=== PATIENT | female | born 1970 | race Caucasian/White ===

== ENCOUNTER → 2020-11-04 11:08 | Outpatient (CLI) | payer OTHER, SELFPAY ==
--- NOTE | ~2020-11-04 | US_ITS ---
EXAMINATION: US pelvic complete w TV DATE: 11/04/2020 11:41 INDICATION: Postmenopausal bleeding TECHNIQUE: Multiple transabdominal and endovaginal sonographic images of the pelvis were obtained. COMPARISON: CT dated 12/15/2013r FINDINGS: The uterus measures 7.2 x 3.4 x 4.7 cm. The endometrial complex measures 2 mm in thickness. The righ t ovary measures 4.5 x 2.8 x 4.5 cm. 3.5 cm anechoic right ovarian cyst which measures approximately 3.2 cm at the time of the prior CT. The left ovary measures 3.1 x 2.4 x 3.5 cm. 8 mm anechoic left ov lyndsey cyst. Vascular flow identified in both ovaries on color Doppler. There is no free fluid in the pelvis. IMPRESSION: 1. Normal uterus with 2 mm thick endometrial complex. 2. Chronic 3.5 cm right ovarian cyst. Reviewed, dictated and finalized at location B.
== END ==
PROVIDERS: PCP Family Medicine Adolescent Medicine; Visit Provider Physician Assistant
DX: N95.0 Postmenopausal bleeding (principal); N83.201 Unspecified ovarian cyst, right side
CPT/HCPCS: 76830; 76856

== ENCOUNTER → 2022-12-22 07:45 | Outpatient (CLI) | payer OTHER, SELFPAY ==
--- NOTE | ~2022-12-22 | XR_ITS ---
EXAMINATION: XR knee LT 3V DATE: 12/22/2022 08:05 INDICATION: Left knee pain. TECHNIQUE: 3 views of left knee including standing views were obtained. COMPARISON: None. FINDINGS: Bone alignment is normal. No fracture. There is mild tricompartmental osteoarthritis charac terized by tiny osteophytes. No joint space narrowing. No knee joint effusion. IMPRESSION: 1. Mild left knee osteoarthritis. Reviewed, dictated and finalized at location A.
== END ==
PROVIDERS: PCP Family Medicine Adolescent Medicine; Visit Provider Nurse Practitioner Family
DX: M17.12 Unilateral primary osteoarthritis, left knee (principal)
CPT/HCPCS: 73562

== ENCOUNTER 2023-01-11 09:14 | Day surgery (SDC) | payer OTHER, SELFPAY ==
[2022-12-04 10:52] VITALS: BMI 27.1
[2022-12-26 12:10] VITALS: BMI 26.9
--- NOTE | 2022-12-26 12:28 | PC.NURSE ---
PREOP INTERVIEW COMPLETED. PT VERY NERVOUS. ASKING MANY QUESTIONS REGARDING BOWEL PREP. ALL QUESTIONS ANSWERED PER DR MOSLEY [employer]. PT STATES SHE DOES HAVE PREP INSTRUCTIONS.
--- NOTE | 2023-01-10 15:25 | PM.HPGS ---
History of Present Illness History of Present Illness Consent: Risks, benefits, and alternatives have been discussed and questions answered. Patient agrees to proceed with procedure. Chief complaint: Neoplasm Screening Narrative: Cathy Arenas is a 52 year old female Referred for colon cancer screening. Th Review of Systems Review of Systems: All systems reviewed & are unremarkable except as noted in HPI and below PMFSH Past Medical History Medical History Asthma Family History Family History Father Acute myocardial infarction Hypertension Mother Diabetes mellitus Social History Social History Smoking status: Never smoker Alcohol intake: current Drinks per week: 1 Alcohol use details: OCCASIONAL GLASS OF WINE Substance use: never Substance use type: does not use Living arrangements: alone Spiritual care concerns: No Meds Home Medications and Allergies Home Medications Medication Instructions Recorded Confirmed Type albuterol sulfate 90 mcg/actuation 2 inh inhalation Q4H #8.5 grams 11/16/22 01/03/23 Rx aerosol inhaler fluticasone propionate 230 2 puff inhalation BID #12 grams 11/21/22 01/11/23 Rx mcg-salmeterol 21 mcg/actuation HFA inhaler (Advair HFA) diclofenac sodium 1 % topical gel 1 g topical QID #100 grams 01/03/23 01/03/23 Rx indomethacin 50 mg capsule 50 mg PO BID #60 caps 01/03/23 01/03/23 Rx Allergies Allergy/AdvReac Type Severity Reaction Status Date / Time fluoxetine [From Prozac] Allergy Intermediate Hives Verified 01/11/23 09:42 Exam Resp: Auscultation: clear to auscultation bilaterally Cardio: Rate: regular rate Rhythm: regular rhythm GI: GI Palp: Yes Soft to palpation and No Tenderness to palpation present (GI) Assessment and Plan Assessment and plan (1) Colon cancer screening: Code(s): Z12.11 - Encounter for screening for malignant neoplasm of colon Status: Acute Assessment and Plan: Colonoscopy with possible biopsy or polypectomy or cautery or injection of substances.
[2023-01-11 09:40] VITALS: BP 109/67; PULSE 82; RESP 18; TEMP 37.2; O2SAT 100; BMI 26.9
--- NOTE | 2023-01-11 09:57 | WPDANESEPPF ---
Anes - Initial Pre Proc Eval Procedure: Operation Date: 01/11/23 11:00 Proposed Procedures p Screening Colonoscopy - Jarad Nunez MD Date/Time: 01/11/23 09:57 Surgeon: Jarad Nunez MD Pre Op Diagnosis: Neoplasm Screening Patient Data Age: 52 Gender: F Height: 1.57 m Weight: 66.7 kg Last Vital Signs Temp 37.2 C 01/11/23 09:40 Pulse 82 01/11/23 09:40 Resp 18 01/11/23 09:40 BP 109/67 01/11/23 09:40 Pulse Ox 100 01/11/23 09:40 O2 Del Method Room Air 01/11/23 09:40 Allergies Allergy/AdvReac Type Severity Reaction Status Date / Time fluoxetine [From Prozac] Allergy Intermediate Hives Verified 01/11/23 09:42 Home Medications Medication Instructions Recorded Confirmed Type albuterol sulfate 90 mcg/actuation 2 inh inhalation Q4H #8.5 grams 11/16/22 01/03/23 Rx aerosol inhaler fluticasone propionate 230 2 puff inhalation BID #12 grams 11/21/22 01/11/23 Rx mcg-salmeterol 21 mcg/actuation HFA inhaler (Advair HFA) diclofenac sodium 1 % topical gel 1 g topical QID #100 grams 01/03/23 01/03/23 Rx indomethacin 50 mg capsule 50 mg PO BID #60 caps 01/03/23 01/03/23 Rx Patient hx anesthesia problems: none Family hx anesthesia problems: none Results Review: All pre-operative results and documents have been reviewed as part of the pre-operative evaluation. [facility] Past Medical History Medical History (Updated 01/11/23 @ 09:57 by Pedro Velasquez MD) Asthma Family History Family History Father Acute myocardial infarction Hypertension Mother Diabetes mellitus Social History Social History Smoking status: Never smoker Alcohol intake: current Drinks per week: 1 Alcohol use details: OCCASIONAL GLASS OF WINE Substance use: never Substance use type: does not use Living arrangements: alone Spiritual care concerns: No Anes - Eval Final PreProcedure Day of Procedure 05/25/23 09:57 Patient weight: overweight Heart: regular rate and rhythm Lungs: clear to auscultation Airway: Mallampati scale class II Neurological: alert and oriented Last oral intake: >/= 8 hours ASA classification: II Emergent: no Anesthetic plan: proceed Anesthesia type and monitoring: general GIVS and standard monitoring Results Review: All pre-operative results and documents have been reviewed as part of the pre-operative evaluation. Informed Consent: The patient's anesthetic plan and its attendant risks and benefits were discussed with the patient/family/POA. Questions were solicited and answers provided to the satisfaction of the patient/family/POA.
[2023-01-11] MEDS: LACTATED RINGERS 1,000 ML 150 ML IV CONT (10:12)
[2023-01-11 11:22] VITALS: BP 116/92; PULSE 79; RESP 16; O2SAT 98
[2023-01-11 11:32] VITALS: BP 100/72; PULSE 74; RESP 16; O2SAT 100
[2023-01-11 11:42] VITALS: BP 103/72; PULSE 79; RESP 16; O2SAT 100
--- NOTE | 2023-01-11 11:46 | WPDANESPN ---
Anes - Prog Note Post-Op Date/Time: 01/11/23 11:46 Cardiovascular status: normal Respiratory status: normal Airway patency: baseline Mental status: baseline Post-Op hydration status: normal Vital Signs: Last Vital Signs Temp 37.2 C 01/11/23 09:40 Pulse 74 01/11/23 11:32 Resp 16 01/11/23 11:32 BP 100/72 01/11/23 11:32 Pulse Ox 100 01/11/23 11:32 O2 Del Method Room Air 01/11/23 11:32 Pain Score (VAS): 0/10 I/O: Intake & Output 01/10/23 01/11/23 01/11/23 23:59 07:59 15:59 Intake Total 0 Balance 0 Patient Feedback: Patient satisfied with anesthetic care.
== END 2023-01-11 12:07 | disposition home or self-care (01) ==
PROVIDERS: PCP Family Medicine Adolescent Medicine; Visit Provider Internal Medicine Gastroenterology
PROC: 0DJD8ZZ Inspection of Lower Intestinal Tract, Via Natural or Artificial Opening Endoscopic (ICD-10-PCS; CPT 45378; principal; 2023-01-11 11:00)
DX: Z12.11 Encounter for screening for malignant neoplasm of colon (principal)
CPT/HCPCS: 45378

== ENCOUNTER → 2023-02-17 10:27 | Outpatient (CLI) | payer OTHER, SELFPAY ==
--- NOTE | ~2023-02-17 | MR_ITS ---
MRI of the left knee Clinical history: Enthesopathy Technique: Coronal proton density and proton density-weighted images, sagittal proton-density and T2 fat-sat images, and axial proton-density fat-saturated images were acquired. Findings: Anterior and posterior cruciate ligaments are intact. Medial collateral ligament and the la teral collateral ligament complex are intact. Popliteus tendon is intact. There is complex tearing of the posterior horn of the medial meniscus with probable vertical and hori zontal tear components. No lateral meniscal tear seen. There are areas of mild chondral thinning at the medial and lateral femoral condyles. There is modera te chondromalacia throughout the femoral trochlea. There is moderate to high-grade chondromalacia giana ng the medial patellar facet. Minimal tricompartmental osteophytes are present. Extensor mechanism is intact. Minimal joint effusion present, with minimal Root's cyst. Impression: Complex tearing of the posterior horn the medial meniscus, as detailed above. Mild tricompartmental degenerative change, worst in the patellofemoral compartment. Minimal joint effusion and minimal Root's cyst. Reviewed, dictated and finalized at [facility]. Impression: Complex tearing of the posterior horn the medial meniscus, as detailed above. Mild tricompartmental degenerative change, worst in the patellofemoral compartm ent. Minimal joint effusion and minimal Root's cyst.
== END ==
PROVIDERS: PCP Family Medicine Adolescent Medicine; Visit Provider Nurse Practitioner Family
DX: M76.892 Other specified enthesopathies of left lower limb, excluding foot (principal); S83.232A Complex tear of medial meniscus, current injury, left knee, initial encounter; X58.XXXA Exposure to other specified factors, initial encounter; M17.12 Unilateral primary osteoarthritis, left knee; M25.462 Effusion, left knee
CPT/HCPCS: 73721

== ENCOUNTER 2023-05-10 00:34 | Day surgery (SDC) | payer OTHER, SELFPAY ==
[2023-05-03 13:44] VITALS: BMI 27.6
--- NOTE | 2023-05-03 14:10 | PC.NURSE ---
Report to the Outpatient Waiting Room, entrance under the green pavilion located off [facility], at time _0830 on date _05/10/23 . Planned Procedure Time: __1030 . Time changes happen often and if your time is changed the preop area will call you the afternoon before. - You and your visitor will be asked to self-screen and do not enter if you have any COVID symptoms. - A mask is optional within the hospital at this time. Patients may have clear liquids (water, carbonated beverages, clear teas, apple juice) until 3 hours prior to surgery with a maximum of 20 ounces. - No food from midnight until time of surgery Take the following medications with a SIP of water the morning of surgery: _NONE DO NOT STOP ANY OF YOUR OTHER PRESCRIPTION MEDICATIONS PRIOR TO SURGERY ?EXCEPT THE FOLLOWING Medications to discontinue per physician ____VOLTAREN GEL; ALEVE Date to take last dose___05/03/23 Please no make-up, nail tongan, hairspray, perfume, deodorant, or body powder the day of surgery. No jewelry (including any body piercings) or valuables the day of surgery, leave them at home. Please take a shower or bath the night before, or the morning of, surgery with an antibacterial soap. Wear comfortable, loose fitting clothing. - Jewelry must be removed prior to entering the operating room. Rings and piercings that are not removed may be cut off. - The hospital will not accept responsibility for valuables. - Please leave all valuables, including medications, at home the day of surgery. If you are going home after surgery, a licensed regional intermodal truck driver must drive you home. - NO public transportation without another adult if you receive anesthesia. - We recommend that an adult stay with you for 24 hours following discharge. - We also recommend that you do not drive, make important decision, drink alcoholic beverages, or take any drugs that were not prescribed by your health care provider for at least 24 hours after your discharge time. Follow any additional instructions given to you from your surgeon. If you or anyone in your household have experienced Covid symptoms in the past week, please notify your surgeon or the nurse liaison at the phone number below for possible testing. Telephone instructions given to _LUANNELUIS__and asked if any additional questions and then verbalized understanding. Patient advised to call surgeon office or pre surgery nurse liaison [phone] if any additional questions.
[2023-05-10] VITALS (11 sets, daily range): BP systolic 87–122; BP diastolic 53–72; PULSE 58–72; RESP 10–19; TEMP 36.6–37.1; O2SAT 100
[2023-05-10] MEDS: ACETAMINOPHEN 500 MG TABLET 1000 MG PO (09:35)
[2023-05-10] MEDS: LACTATED RINGERS 1,000 ML 30 ML IV CONT ×2 (09:49→14:45)
--- NOTE | 2023-05-10 10:26 | WPDANESEPPF ---
Anes - Initial Pre Proc Eval Procedure: Operation Date: 05/10/23 11:00 Proposed Procedures p Arthroscopic Left Knee Partial Medial Meniscectomy - Omkar Lee MD Date/Time: 05/10/23 10:26 Surgeon: Omkar Lee MD Pre Op Diagnosis: Lt Knee Medial Men Tear Patient Data Age: 53 Gender: F Height: 1.59 m Weight: 69 kg Last Vital Signs Temp 98.7 F 05/10/23 09:53 Pulse 72 05/10/23 09:53 Resp 19 05/10/23 09:53 BP 122/72 05/10/23 09:53 Pulse Ox 100 05/10/23 09:53 O2 Del Method Room Air 05/10/23 09:53 Allergies Allergy/AdvReac Type Severity Reaction Status Date / Time fluoxetine [From [facility]] Allergy Intermediate Hives Verified 05/10/23 09:34 Home Medications Medication Instructions Recorded Confirmed Type fluticasone propionate 230 2 puff inhalation BID #12 grams 11/21/22 05/03/23 Rx mcg-salmeterol 21 mcg/actuation HFA inhaler (Advair HFA) diclofenac sodium 1 % topical gel 1 g topical QID #100 grams 01/03/23 05/03/23 Rx tramadol 50 mg tablet 50 mg PO Q6H PRN pain #20 tabs 02/09/23 05/10/23 Rx naproxen sodium 220 mg capsule 220 mg PO BID PRN Pain 04/17/23 05/10/23 History (Aleve) albuterol sulfate 90 mcg/actuation 2 inh inhalation Q4H PRN SOB 05/03/23 05/03/23 History aerosol inhaler Patient hx anesthesia problems: none Family hx anesthesia problems: none Results Review: All pre-operative results and documents have been reviewed as part of the pre-operative evaluation. [facility] Past Medical History Medical History Asthma Surgical History Surgical History History of tonsillectomy Family History Family History Father Acute myocardial infarction Hypertension Mother Diabetes mellitus Social History Social History Smoking packs per day: 0.25 Smoking cigarettes per day: 5.0 Years smoked: 10 Smoking pack-years: 2.50 Smoking status: Former smoker Tobacco type: cigarettes Smoking end date: 08/20/97 Alcohol intake: current Drinks per week: 1 Alcohol use details: OCCASIONAL GLASS OF WINE Substance use: never Substance use type: does not use Lack of Transportation: No Lack of Food: Never True Current Housing: I Have Housing Concerned About Future Housing: No Difficulty Paying Gas/Electric Bills: No Difficulty Paying for Meds: No Currently Unemployed: No Education: Associate Degree Difficulty w/ Childcare or Family Care: No Living arrangements: alone Occupation/Education: occupation 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 Informed Consent: The patient's anesthetic plan and its attendant risks and benefits were discussed with the patient/family/POA. Questions were solicited and answers provided to the satisfaction of the patient/family/POA.
--- NOTE | 2023-05-10 10:38 | WPDHPUPDATE1 ---
History and Physical Update Update Date/Time: 05/10/23 10:38 History and Physical has been reviewed, including an updated exam of the patient. There are NO changes in the patient's condition. Risks, benefits, and alternatives have been discussed and questions answered. Patient agrees to proceed with procedure.
[2023-05-10] MEDS: KETOROLAC 15 MG/ML VIAL (*BKC) IV PUSH (10:39)
--- NOTE | 2023-05-10 12:20 | P.OP_ITS ---
Procedure Note - Detailed Date of Procedure 05/10/23 Pre-op Diagnosis Lt Knee Medial Men Tear Post-op Diagnosis Same Procedure Performed Arthroscopic partial medial meniscectomy, left knee. Surgeon Omkar Lee MD Anesthesia General Findings Complex posterior horn tear medial meniscus. Medial femur chondromalacia grade 3, medial tibia grade 2. Lateral femur chondromalacia grade 0, lateral tibia grade 0. Patellar grade 2, trochlea grade 2. Description of Procedure The patient was identified and the surgical site confirmed and signed in the preoperative holding area. Antibiotics were started per protocol. She was brought to the operative room and transferred to the OR table. A general anesthetic was administered. Supine position with the operative lower extremity position in the leg baptiste after placement of a well padded tourniquet. The leg support was lowered and the contralateral limb was supported with a soft bolster. The knee was prepped and draped in the usual sterile fashion. A time- out was performed. The portal sites were marked and infiltrated with 0.5% Marcaine 20 mL. The limb was exsanguinated and the tourniquet inflated to 300 mL Hg. Standard inferolateral and inferomedial portals were established. Inflow was obtained with the saline pump. The camera was introduced. Diagnostic inspection of the joint was accomplished. The meniscus was debrided with the arthroscopic shaver and punches until stable. The radiofrequency probe was also used for further d?bridement. The arthroscopic instruments were removed. The tourniquet released and wounds closed with subcutaneous 4-0 Monocryl absorbable suture. Steri strips and a sterile dressing were applied. A light elastic wrap was placed. The patient was extubated and brought to the recovery room in stable condition. Estimated Blood Loss 5 Drains No Complications No immediate complications Condition Stable Disposition PACU [facility] Billing Surgery - Charge Forward: Surgery Billing
[2023-05-10] MEDS: oxyCODONE HCL (*CRX) 5 MG TAB IR PO (13:03)
[2023-05-10] MEDS: ONDANSETRON INJ 4 MG/2 ML VIAL IV PUSH (14:15)
== END 2023-05-10 15:26 | disposition home or self-care (01) ==
PROVIDERS: PCP Family Medicine Adolescent Medicine; Visit Provider Orthopaedic Surgery
PROC: (CPT 29870; principal; 2023-05-10 11:00)
DX: S83.232A Complex tear of medial meniscus, current injury, left knee, initial encounter (principal); X50.0XXA Overexertion from strenuous movement or load, initial encounter; M22.42 Chondromalacia patellae, left knee; J45.909 Unspecified asthma, uncomplicated; Z79.51 Long term (current) use of inhaled steroids; Z87.891 Personal history of nicotine dependence
CPT/HCPCS: 29881; A9270; J1100; J1885; J2250; J2405; J2704; J3010; J7120

== ENCOUNTER 2023-08-03 09:01 | Outpatient (CLI) | payer OTHER, SELFPAY ==
--- NOTE | ~2023-08-03 | XR_ITS ---
Left Knee Technique: AP, lateral, and sunrise views were obtained. Clinical History: Pain COMPARISON: 12/22/2022 Findings: No fracture or dislocation is seen. Osseous alignment is anatomic. Minimal spurring about t he knee noted. Soft tissues are unremarkable. No joint effusion is seen. Impression: Minimal degenerative spurring. Reviewed, dictated and finalized at location . [facility] Impression: Minimal degenerative spurring.
== END 2023-08-03 09:02 | disposition home or self-care (01) ==
PROVIDERS: PCP Family Medicine Adolescent Medicine; Visit Provider Orthopaedic Surgery
DX: Z47.89 Encounter for other orthopedic aftercare (principal)
CPT/HCPCS: 73562